=== PATIENT | male | born 1965 | race American Indian/Alaskan Native ===

== ENCOUNTER 2021-10-09 09:26 | Outpatient (CLI) | payer OTHER ==
--- NOTE | 2021-10-09 10:37 | XRay Report ---
CERVICAL SPINE 4 VIEWS INDICATION: Cervicalgia. COMPARISON: None. IMPRESSION: Normal alignment. 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 The facet joints are unremarkable. No acute osseous or soft tissue abnormality. RIGHT FOOT 3 VIEWS INDICATION: PAIN IN RIGHT FOOT/ANKLE. COMPARISON: None. IMPRESSION: No acute osseous or soft tissue abnormality. 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 The ankle is poorly imaged on t his exam but mild osteoarthritic changes are suspected. The remaining joint spaces are unremarkable. Signer Name: Buster Henriquez Jr, MD Signed: 10/09/2021 10:32 AM Workstation Name: [id number]
== END 2021-10-09 09:27 | disposition home or self-care (01) ==
LOC: XRAY 09:26
PROVIDERS: ATTEND Orthopaedic Surgery
DX: M19.071 Primary osteoarthritis, right ankle and foot (principal); M47.812 Spondylosis without myelopathy or radiculopathy, cervical region
CPT/HCPCS: 72040